=== PATIENT | female | born 1990 | race Caucasian/White ===

== ENCOUNTER 2019-12-11 15:01 | Outpatient (CLI) | payer BC ==
[2019-12-11] MEDS ORDERED: NONE PER PT (15:37)
== END 2019-12-11 23:59 | disposition home or self-care (01) ==
LOC: STAR 15:01
PROVIDERS: ATTEND Otolaryngology
DX: Z02.9 Encounter for administrative examinations, unspecified (principal)

== ENCOUNTER 2019-12-18 06:35 | Day surgery (SDC) | payer BC ==
[~2019-12-18] VITALS: Ht 160 cm; Wt 51.8 kg
[~2019-12-18 06:35] MED LIST: NONE PER PT
[2019-12-18] MEDS ORDERED: LACTATED RINGERS 1,000 ML IV SCH (06:54)
[2019-12-18 07:00] VITALS: BP 107/74
[2019-12-18] MEDS ORDERED: CHLORHEXIDINE 15 ML UDC MM ONE (07:00)
[2019-12-18] MEDS ORDERED: OXYMETAZOLINE NASAL SPRAY 0.05%, 15ML ONE (07:05)
[2019-12-18 07:08] LABS: HCG UR SG 1.024 (1.003-1.030)
[2019-12-18] MEDS ORDERED: SCOPOLAMINE 1MG PATCH TD SCH (07:30)
[2019-12-18] MEDS ORDERED: ROCURONIUM 10 MG/ML,10ML ONE (08:27)
[2019-12-18] MEDS ORDERED: DEXAMETHASONE 4 MG/ML, 1ML ONE (08:27)
[2019-12-18] MEDS ORDERED: NEOSTIGMINE 1 MG/ML, 10ML ONE (08:27)
[2019-12-18] MEDS ORDERED: ONDANSETRON 2MG/ML, 2ML ONE (08:27)
[2019-12-18] MEDS ORDERED: MIDAZOLAM 1 MG/ML, 2ML ONE (08:27)
[2019-12-18] MEDS ORDERED: GLYCOPYRROLATE 0.2MG/1ML, 5ML ONE (08:27)
[2019-12-18] MEDS ORDERED: PROPOFOL 10 MG/ML, 20ML ONE (08:27)
[2019-12-18] MEDS ORDERED: SUCCINYLCHOLINE 20 MG/ML, 10ML ONE (08:27)
[2019-12-18] MEDS ORDERED: OXYcodone 5 MG/5 ML ORAL.SOL UDC PO PRN (08:30)
[2019-12-18] MEDS ORDERED: HYDROmorphone 1 MG/ML, 1ML INJ IVPush PRN (08:30)
[2019-12-18] MEDS ORDERED: MEPERIDINE/PF 25MG/0.5ML IVPush PRN (08:30)
[2019-12-18] MEDS ORDERED: FENTANYL PF 100 MCG/2ML IV PRN (08:30)
[2019-12-18] MEDS ORDERED: HYDROcodone/APAP 7.5-325MG/15ML UDC PO PRN (08:30)
[2019-12-18] MEDS ORDERED: PROMETHAZINE 25 MG/ML, 1ML IVPush PRN (08:30)
[2019-12-18] MEDS ORDERED: OXYcodone 5 MG/5 ML ORAL.SOL UDC ONE (09:53)
[2019-12-18] MEDS ORDERED: MEPERIDINE/PF 25MG/ML,1ML ONE (09:53)
[2019-12-18] MEDS ORDERED: ACETAMINOPHEN 650 MG/20.3 ML UDC ONE (09:53)
[2019-12-18] MEDS ORDERED: FENTANYL PF 100 MCG/2ML ONE (09:54)
[2019-12-18] MEDS ORDERED: ACETAMINOPHEN 650 MG/20.3 ML UDC PO PRN (10:00)
[2019-12-18] MEDS ORDERED: PROMETHAZINE 25 MG/ML, 1ML ONE (10:15)
== END 2019-12-18 14:35 | disposition home or self-care (01) ==
LOC: OUT 06:35
PROVIDERS: ATTEND Otolaryngology
DX: J03.01 Acute recurrent streptococcal tonsillitis (principal); Z11.59 Encounter for screening for other viral diseases; J35.01 Chronic tonsillitis; F32.9 Major depressive disorder, single episode, unspecified; F41.9 Anxiety disorder, unspecified; J45.909 Unspecified asthma, uncomplicated; Z98.890 Other specified postprocedural states; Z82.5 Family history of asthma and other chronic lower respiratory diseases
CPT/HCPCS: 42821; 81025; 88304; J0330; J1100; J2175; J2250; J2405; J2550; J2704; J2710; J3010; J7120; U0001